=== PATIENT | female | born 1980 | race Asian ===

== ENCOUNTER 2018-02-14 18:03 | Emergency (ER) | payer BC ==
[2018-02-14] MEDS ORDERED: NS 1,000 ML IV ONE (18:38)
[2018-02-14 19:07] LABS: PLATELET COUNT 286 10^3/uL (150-400)
--- NOTE | 2018-02-14 20:16 | EDPHY ---
H & P Stated Complaint: 6 wks spotting since sunday/increasing Time Seen by Provider: 02/14/18 18:38 HPI/ROS: CHIEF COMPLAINT: Vaginal bleeding, HISTORY OF PRESENT ILLNESS: 37-year-old female presents with vaginal bleeding which started 3 days ago. Patient's last period was December 25 and she had a positive test at the end of January. She started having spotting and bleeding 2 days ago with increasing bleeding, cramping, and clots. No lightheadedness or dizziness. No fainting. No history of ectopic pregnancies, 2 pregnancies, sexually transmitted disease, prior IUD use. 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 No urinary complaints. REVIEW OF SYSTEMS: A comprehensive 10 system review of systems was reviewed and is otherwise negative aside from elements mentioned in the history of present illness. 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 SOCIAL HISTORY: Here with her spouse and child. Recently moved to the [facility]. VITAL SIGNS Reviewed by me. GENERAL: Well-developed, well-nourished, resting comfortably in no respiratory distress. HEENT: Atraumatic. Eyes: No icterus, no injection. Mouth: moist mucous membranes. No erythema or lesions. Neck: supple with no adenopathy. LUNGS: Clear to auscultation bilaterally, no wheezes, rhonchi or rales. CARDIAC: Regular rate and rhythm, no rubs, murmurs or gallops. ABDOMEN: Soft, nontender, nondistended, bowel sounds normal. Scant bleeding on the pad. BACK: No CVA tenderness. EXTREMITIES: No trauma. No edema. Range of motion is normal throughout. NEURO: Alert and oriented, grossly nonfocal. SKIN: Warm and dry, no rash. PSYCHIATRIC: Normal mentation, no agitation. - Personal History LMP (Females 10-55): Current Tetanus Diphtheria and Acellular Pertussis (TDAP): Yes - Medical/Surgical History Hx Asthma: No Hx Chronic Respiratory Disease: No Hx Diabetes: No Hx Cardiac Disease: No Hx Renal Disease: No Hx Cirrhosis: No Hx Alcoholism: No Hx HIV/AIDS: No Hx Splenectomy or Spleen Trauma: No Other PMH: factor 11 deficiency - Social History Smoking Status: Never smoked Constitutional: Initial Vital Signs Temperature (C) 37 C 02/14/18 18:20 Heart Rate 70 02/14/18 18:20 Respiratory Rate 18 09/13/18 18:20 Blood Pressure 104/72 02/14/18 18:20 O2 Sat (%) 97 02/14/18 18:20 O2 Delivery Mode Room Air Allergies/Adverse Reactions: Sulfa (Sulfonamide Antibiotics) Allergy (Verified 02/14/18 18:20) Home Medications: Medication Instructions Recorded 02/14/18 Medical Decision Making - Diagnostics Imaging Results: Obstetrics Ultrasound 02/14/18 18:39 Impression: 1. of unknown location. No intrauterine or extrauterine gestational sac. No secondary signs of ectopic of . 2. Normal ovaries. Findings discussed with Emergency Department physician, Aubree Taylor MD at 02/14/2018 19:50. Imaging: Discussed imaging studies w/ call manager Radiologist ED Course/Re-evaluation: IV was placed. Labs are largely unremarkable. Patient has a quant of 7164. O positive. Ultrasound: No in the uterus. Normal adnexa. Results of the ultrasound discussed at length with the patient. Understands that the likelihood of a normal is quite low. Most likely missed miscarriage. Patient will follow up with OBGYN in 48 hr for repeat quant. Understands that if her pain worsens, she develops lightheadedness, dizziness, fainting, she should return to the emergency department or seek care urgently. Differential Diagnosis: Diff dx considered including but not limited to threatened miscarriage, spontaneous miscarriage, ectopic , blighted ovum, miscarriage in process. - Data Points Laboratory Results: Laboratory Results 02/14/18 18:52 02/14/18 18:52 Medications Given: Discontinued Medications Sodium Chloride (Ns) 1,000 mls @ 0 mls/hr IV ONCE ONE; Wide Open PRN Reason: Protocol Stop: 02/14/18 18:39 Last Admin: 02/14/18 18:50 Dose: 1,000 mls Departure - Departure Disposition: Home, Routine, Self-Care Clinical Impression: Vaginal bleeding, Threatened miscarriage Condition: Good Instructions: Miscarriage (ED), Threatened Miscarriage (ED) Additional Instructions: We see no in the uterus on your ultrasound today. Your quantitative HCG today is 7165. With a quantitative HCG this high, you should see a if it in the uterus. This leads me to believe that you may have had a miscarriage already. However, you need a repeat quantitative HCG in 48 hr . Please return to the outpatient lab here to have a repeat quantitative HCG performed in 48 hr. Please follow up with Dr. Dubose. Your case has been discussed with her. Someone will contact you on Sunday with respect to the results of the quantitative HCG. If you have worsening pain, significant worsening bleeding, developed lightheadedness, dizziness, or fainting, please return to the emergency department or seek care urgently. It is okay to take Tylenol or ibuprofen as needed for cramping and pain. Referrals: NONE *PRIMARY CARE P,. [Primary Care Provider] - As per Instructions Teri Dubose MD [Medical Doctor] - As per Instructions (Please follow up with Dr. Dubose early next week. You may also contact her office on Sunday to obtain the results of your repeat quantitative HCG.)
[2018-02-14 20:22] LABS: INR 1.01 (0.83-1.16); PROTIME(PATIENT) 13.5 SEC (12.0-15.0)
[2018-02-14 20:25] VITALS: BP 116/64
== END 2018-02-14 20:35 | disposition home or self-care (01) ==
DX: O20.0 Threatened abortion (principal); E86.9 Volume depletion, unspecified; Z3A.01 Less than 8 weeks gestation of pregnancy